=== PATIENT | male | born 1965 ===

== ENCOUNTER 2017-01-09 02:51 | Emergency (ER) | payer SELFPAY ==
--- NOTE | 2017-01-09 02:53 | ED PDOC ---
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 Patient was rapid response overhead page. As per security incident response specialist, patient had come in from the street and had to use the bathroom. guard chief states patient never came out so he went in to check on him. Patient was found unconscious with drug paraphernalia. Rapid response was called, patient was brought to the Emergency room, and was administered one dose of Narcan with improvement. Patient admits to using heroin. Patient denies chest pain, shortness of breath, vomiting, diarrhea, weakness, suicidal ideation or any other complaints. Time/Duration: Prior to Arrival Symptom Onset: Sudden Symptom Course: Improving Activities at Onset: Light Context: Other ([facility] Bathroom ) Past Medical History - Provider Review Nursing Documentation Reviewed: Yes Family/Social History - Physician Review Nursing Documentation Reviewed: Yes Family/Social History: No Known Family HX Allergies/Home Meds Allergies/Adverse Reactions: Allergies No Known Allergies Allergy (Verified 01/09/17 02:56) Home Medications: Home Meds Medication Instructions Recorded Confirmed No Known Home Med 01/09/17 01/09/17 Review of Systems - Physician Review All systems were reviewed & negative as marked: Yes - Review of Systems Constitutional: Normal. absent: Fevers Eyes: Normal ENT: Normal Respiratory: Normal. absent: SOB, Cough Cardiovascular: Normal. absent: Chest Pain Gastrointestinal: absent: Diarrhea, Vomiting Genitourinary Male: absent: Dysuria, Frequency Musculoskeletal: Normal. absent: Back Pain, Neck Pain Skin: Normal Neurological: Normal Endocrine: Normal. absent: Diaphoresis Psychiatric: Other (Substance Abuse ) Physical Exam Vital Signs Reviewed: Yes Vital Signs Temp Pulse Resp BP Pulse Ox 01/09/17 02:55 98.5 F 96 H 18 138/89 99 01/09/17 02:51 76 L Temperature: Afebrile Blood Pressure: Normal Pulse: Regular Respiratory Rate: Normal Pain Distress: None Mental Status: Positive for: Lethargic - Systems Exam Head: Present: Atraumatic, Normocephalic Pupils: Present: Pinpoint Extroacular Muscles: Present: EOMI Conjunctiva: Present: Normal Mouth: Present: Moist Mucous Membranes Neck: Present: Normal Range of Motion Respiratory/Chest: Present: Clear to Auscultation, Good Air Exchange. No: Respiratory Distress, Accessory Muscle Use Cardiovascular: Present: Regular Rate and Rhythm, Normal S1, S2. No: Murmurs Abdomen: Present: Normal Bowel Sounds. No: Tenderness, Distention, Peritoneal Signs Back: Present: Normal Inspection Upper Extremity: Present: Normal Inspection. No: Cyanosis, Edema Lower Extremity: Present: Normal Inspection. No: Edema Neurological: Present: GCS=15, CN II-XII Intact Skin: Present: Warm, Dry, Normal Color. No: Rashes Psychiatric: Present: Lethargic Medical Decision Making ED Course and Treatment: 01/09/17 02:54 Impression: 51 year old male was presented to the Emergency department for substance overdose. Differential Diagnosis included but are not limited to: overdose vs. substance abuse Plan: -- Narcan -- Narcan IV Fluids -- Reassess and disposition Progress Notes: 01/09/17 02:44 Patient was a rapid response over head page. Pt immediately brought to ER and administered 0.4 mg of Narcan with improvement. 01/09/17 03:29 Patient was given a second dose of Narcan with improvement. 01/09/17 06:17 On reevaluation the patient feels better and is in no acute distress. I have discussed the results and plan with the patient, who expresses understanding. Patient given the opportunity to ask question, all questions were answered and there is agreement with the plan to discharge the patient home. Patient is stable for discharge. Patient was instructed to follow up with physician/clinic in 1-2 days or return if symptoms persist/worsen or new concerning symptoms arise. Re-evaluation Time: 06:17 Reassessment Condition: Re-examined, Improved - Medication Orders Current Medication Orders: Naloxone HCl 2.4 mg/ Sodium (Chloride) 246 mls @ 61.5 mls/hr IV .Q4H ONE PRN Reason: 0.6 MG/HR Stop: 01/09/17 07:21 Last Admin: 01/09/17 03:43 Dose: 61.5 mls/hr eMAR Start Stop Document 01/09/17 03:43 RD (Rec: 01/09/17 03:43 RD [id number]) Intravenous Solution Start Date 01/09/17 Start Time 03:43 Discontinued Medications Naloxone HCl (Narcan) 0.4 mg IVP STAT STA Stop: 01/09/17 03:02 Last Admin: 01/09/17 02:51 Dose: 0.4 mg IVP Administration Document 01/09/17 02:51 YP (Rec: 01/09/17 03:02 YP [id number]) Charges for Administration # of IVP Administrations 1 Naloxone HCl (Narcan) 0.4 mg IVP STAT STA Stop: 01/09/17 03:23 Last Admin: 01/09/17 03:25 Dose: 0.4 mg IVP Administration Document 01/09/17 03:25 RD (Rec: 01/09/17 03:25 RD [id number]) Charges for Administration # of IVP Administrations 1 - Scribe Statement The provider has reviewed the documentation as recorded by the Fraciscoibwilfredo Turpin training under Radha Malone. All medical record entries made by the Scribe were at my direction and personally dictated by me. I have reviewed the chart and agree that the record accurately reflects my personal performance of the history, physical exam, medical decision making, and the department course for this patient. I have also personally directed, reviewed, and agree with the discharge instructions and disposition. Disposition/Present on Arrival - Present on Arrival Any Indicators Present on Arrival: No - Disposition Have Diagnosis and Disposition been Completed?: Yes Diagnosis: Narcotic abuse Disposition: HOME/ ROUTINE Disposition Time: 06:18 Patient Problems: Current Active Problems Problem Status Onset Narcotic abuse Acute Discharge Instructions (ExitCare): Narcotic Abuse (ED)
[2017-01-09 02:56] VITALS: RESP 18; TEMP 98.5
[2017-01-09] MEDS ORDERED: Naloxone 0.4 mg/ml Inj (Adult) IVP STA ×2 (03:01→03:22)
--- NOTE | 2017-01-09 03:18 | CP.PCM.PN ---
Subjective - Date & Time of Evaluation Date of Evaluation: 01/09/17 Time of Evaluation: 02:44 - Subjective Subjective: Dallas Bui PGY1 CONSULTATIVE SALES ASSOCIATE NOTE for Dr. Alicia Mendoza CONSULTATIVE SALES ASSOCIATE was called at [id number]. CONSULTATIVE SALES ASSOCIATE responded STAT. Patient was noted to be on stretcher heading to ER at the time and was unresponsive. It was endorsed by ED nurse that patient was found in hospital bathroom unresponsive and with a needle next to him; he was let in from outside the hospital to use the bathroom by security. Pt's BP 137/57, HR 94, and O2Sat was in 80's on RA. Patient was given Narcan and he responded well. he became responsive and O2Sat was 100%, and pt was able to state that he used heroin. Denies other PMH. Patient was stable and in care of ED staff. Objective - Vital Signs/Intake and Output Vital Signs (last 24 hours): Temp Pulse Resp BP Pulse Ox 98.5 F 96 H 18 138/89 99 01/09/17 02:55 01/09/17 02:55 01/09/17 02:55 01/09/17 02:55 01/09/17 02:55 - Constitutional Appears: Well, No Acute Distress - Head Exam Head Exam: ATRAUMATIC, NORMAL INSPECTION, NORMOCEPHALIC - Eye Exam Eye Exam: EOMI, Normal appearance, PERRL - ENT Exam ENT Exam: Mucous Membranes Moist - Neck Exam Neck Exam: Full ROM - Respiratory Exam Respiratory Exam: Clear to Ausculation Bilateral, NORMAL BREATHING PATTERN. absent: Rhonchi, Wheezes - Cardiovascular Exam Cardiovascular Exam: Tachycardia, +S1, +S2 - GI/Abdominal Exam GI & Abdominal Exam: Soft. absent: Distended, Tenderness - Extremities Exam Extremities Exam: Normal Inspection. absent: Pedal Edema - Back Exam Back Exam: NORMAL INSPECTION - Neurological Exam Neurological Exam: Alert, Awake - Psychiatric Exam Psychiatric exam: Normal Affect, Normal Mood - Skin Skin Exam: Normal Color, Warm Assessment and Plan - Assessment and Plan (Free Text) Assessment: 51yo M found unresponsive in public bathroom due to heroin use. CONSULTATIVE SALES ASSOCIATE was called. Narcan was administered and pt became responsive and O2 sats stabilized. Patient in ED and management will be provided per ED team. Patient was seen, examined and discussed with attending, Dr. Alicia Bui PGY1
[2017-01-09] MEDS ORDERED: Naloxone 2.4 MG in Sodium Chloride 0.9% 240 ML IV ONE (03:22)
[2017-01-09 06:34] VITALS: BP 137/81; PULSE 78; O2SAT 97
== END 2017-01-09 06:40 | disposition home or self-care (01) ==
LOC: ED 02:51
DX: F11.10 Opioid abuse, uncomplicated (principal)
CPT/HCPCS: 96374; 96376; 99284; J2310; J7040